=== PATIENT | male | born 1955 | race Hispanic/Latino ===

== ENCOUNTER 2020-09-26 09:05 | Observation (INO) | payer BC ==
[2020-09-26] MEDS ORDERED: ASPIRIN EC 325 MG TAB PO ONE (09:38)
[2020-09-26] MEDS ORDERED: SODIUM CHLORIDE 0.9% 500 ML 500 ML IV SCH (10:00)
[2020-09-26 10:12] LABS: Basophils # (Auto) 0.1 K/mm3 (0.0-0.1); Basophils % (Auto) 1.4 % (0.0-1.8); Eosinophils # (Auto) 0.1 K/mm3 (0.0-0.4); Eosinophils % (Auto) 2.5 % (0.0-4.3); Hematocrit 43.6 % (35.5-45.6); Hemoglobin 14.7 gm/dl (11.8-15.2); Lymphocytes # (Auto) 1.9 K/mm3 (1.2-5.4); Lymphocytes % (Auto) 31.2 % (13.4-35.0); Mean Corpuscular HGB Conc 34 % (32-34); Mean Corpuscular Volume 86 fl (84-94); Monocytes # (Auto) 0.5 K/mm3 (0.0-0.8); Monocytes % (Auto) 8.7 % (0.0-7.3); Platelet Count 252 K/mm3 (140-440); Red Blood Count 5.06 M/mm3 (3.65-5.03); Red Cell Distribution Width 13.1 % (13.2-15.2)
[2020-09-26 10:20] LABS: INR 1.01 (0.87-1.13); Partial Thromboplastin Time 24.5 Sec. (24.2-36.6)
[2020-09-26] MEDS ORDERED: HEPARIN/NS 5000 UNIT/500ML 1,000 ML IR ONE (10:23)
[2020-09-26 10:28] LABS: BUN/Creatinine Ratio 20; Blood Urea Nitrogen 20 mg/dL (9-20); Calcium 9.2 mg/dL (8.4-10.2); Hemolysis Index 9
[2020-09-26] MEDS: ASPIRIN 325 MG TAB ONE ×2 (10:30→16:12)
[2020-09-26] MEDS: MIDAZOLAM 2 MG/2 ML INJ ONE ×2 (11:23→11:30)
[2020-09-26] MEDS: LIDOCAINE (2%) 20 MG/1 ML VIAL 20 ML MDV INFILTRATI ONE ×2 (11:23→11:31)
[2020-09-26] MEDS: fentaNYL 100 MCG/2 ML INJ ONE ×3 (11:23→12:05)
[2020-09-26] MEDS: HEPARIN 10,000 UNITS/10 ML VIAL ONE ×3 (11:25→11:44)
[2020-09-26] MEDS: VERAPAMIL 5 MG/2 ML INJ ONE ×2 (11:25→11:33)
[2020-09-26] MEDS: NITROGLYCERIN SYRINGE 3 ML ONE ×2 (11:26→11:31)
[2020-09-26] MEDS ORDERED: HEPARIN/NS 5000 UNIT/500ML 500 ML IR ONE (11:46)
[2020-09-26] MEDS ORDERED: NITROGLYCERIN SYRINGE 3 ML ONE (12:01)
[2020-09-26] MEDS: TICAGRELOR 90 MG TAB ONE ×2 (12:15→12:16)
[2020-09-26] MEDS ORDERED: HYDROcodone/ACETAMINOPHEN 5-325 MG TAB PO PRN (12:53)
[2020-09-26] MEDS ORDERED: SODIUM CHLORIDE 0.9% 1000 ML 1,000 ML IV SCH (13:00)
--- NOTE | 2020-09-26 13:49 | Cardiac Catherization Report ---
LEFT HEART CATHETERIZATION/PERCUTANEOUS CORONARY INTERVENTION/INTERVENTIONAL AND INTRAVASCULAR ULTRASOUND REPORT CLINICAL INFORMATION: This is a 65-year-old male with hyperlipidemia, hypertension, who has been having exertional chest pain with moderate exertion with abnormal stress test, ST depression on treadmill with inferolateral ischemia. The patient was done with moderate sedation started at 11:30 and finished at 12:07, 37 minutes of moderate sedation. Procedure was done via the right radial artery, sterile technique, local anesthesia, 6-Tanzanian radial sheath inserted. Left system engaged with a JL3.5 catheter. Left main is a large caliber vessel, bifurcates to a large LAD that is patent from proximally and distally. Diagonal 1 is a medium to large caliber vessel, patent. Circumflex is dominant system, large caliber and AV groove. OM1, OM2 and OM3 are large caliber vessel, patent. LPDA is a large caliber vessel, has a proximal 90% and mid 99%. RCA with JR4 is engaged is a small nondominant vessel. LV gram done in KOREAN and BARROS view shows normal LV function, EF 55-60%, LVEDP 26 mmHg, LV is 160. Aortic is 157/80. No gradient across the aortic valve on pullback. A 5-Tanzanian catheters all taken over guidewire, so percutaneous coronary intervention of the LPDA engaged the left system with an EBU 3.5 guiding catheter. 1. Used a short [place] wire into the distal LPDA. 2. Predilated with 2.5 x 10 balloon x3 inflations in the mid and proximal portion of the LPDA. 3. An intravascular ultrasound showed distal reference vessel 3 mm, proximal reference vessel 3.2. 4. Then stented the mid LPDA with a drug-eluting Resolute [place] 3.0 x 15 mm inflated at 12 atmospheres. 5. Then stented the proximal LPDA just after the OM3 with a drug-eluting Resolute [place] 3.0 x 12 inflated at 15 atmospheres. 6. Multiple angiograms KIKO 3 flow, reduced stenosis from 99% down to 0. No dissection or perforation noted 7. Removed coronary wire, multiple angiograms, excellent angiographic result. No dissection or perforation, good stent apposition and expansion noted. 8. A 6-Tanzanian guiding catheter taken over guidewire, 6-Tanzanian radial sheath was discontinued. Radial band applied. No hematoma, no bleeding. SUMMARY: 1. Successful PCI of the proximal LPDA with a drug-eluting Resolute 3.0 x 12 in the mid LPDA, 3.0 x 15 drug-eluting left main patent, circumflex patent, OM1, 2, and 3 large patent. LAD, medium caliber vessel, patent. Diagonal 1 medium caliber and patent. RCA small, nondominant, and patent with normal LV function. 2. The patient will be on aspirin, Brilinta, statin and blood pressure control. Discussed in detail with the patient and the patient's family and primary pediatric lpn. JOB# [id number] VRM/NTS
--- NOTE | 2020-09-26 13:56 | Short Stay Summary ---
Short Stay Documentation Date of service: 09/26/20 - History H&P: obtained from office - Allergies and Medications Current Medications: Allergies No Known Allergies Allergy (Unverified 09/26/20 09:38) Home Medications Medication Instructions Recorded Confirmed Last Taken Type Aspirin 325 mg PO QDAY 09/26/20 09/26/20 09/26/20 10:25 History 325 mg Nitroglycerin [Nitrostat] 0.4 tab SL PRN PRN 09/26/20 09/26/20 Unknown History amLODIPine [Norvasc] 5 mg PO DAILY 09/26/20 09/26/20 09/24/20 History 5 mg Active Medications Hydrocodone Bitart/Acetaminophen (Hydrocodone/Acetaminophen 5-325 Mg Tab) 1 each PO Q6H PRN PRN Reason: Pain, Moderate (4-6) Amlodipine Besylate (Amlodipine 5 Mg Tab) 5 mg PO DAILY RIANNA Aspirin (Aspirin 81 Mg Tab Chew) 81 mg PO QDAY RIANNA Atorvastatin Calcium (Atorvastatin 40 Mg Tab) 40 mg PO QHS RIANNA Sodium Chloride (Nacl 0.9% 500 Ml) 500 mls @ 50 mls/hr IV DIRECT RIANNA Stop: 09/26/20 19:59 Last Admin: 09/26/20 10:38 Dose: 50 mls/hr Documented by: Sodium Chloride (Nacl 0.9% 1000 Ml) 1,000 mls @ 75 mls/hr IV DIRECT RIANNA Stop: 09/26/20 22:59 Ticagrelor (Ticagrelor 90 Mg Tab) 90 mg PO BID [facility] - Physical exam General appearance: no acute distress Integumentary: other (Right radial site inspected. Clean dry and intact. No bleeding or hematoma noted. ) Lungs: Clear to auscultation Heart: Regular rate, Normal S1, Normal S2 Gastrointestinal: normal, normoactive bowel sounds Extremities: no ischemia, pulses intact, pulses symmetrical, No edema, normal temperature, normal color Neurological: Normal gait, Normal speech - Brief post op/procedure progress note Date of procedure: 09/26/20 Pre-op diagnosis: Exertional Dyspnea Post-op diagnosis: other (CAD) Procedure: [facility]- see dictated cath report. Anesthesia: local Estimated blood loss: none Condition: stable - Disposition Condition at discharge: Good Disposition: DC-01 TO HOME OR SELFCARE - Discharge Diagnoses (1) CAD (coronary artery disease) Status: Acute Short Stay Discharge Plan Activity: advance as tolerated Diet: low fat, low cholesterol, low salt Wound: open to air, keep clean and dry, per your surgeon's advice Follow up with: PRIMARY CARE, [Primary Care Provider] - 7 Days YAZAN THIBODEAUX MD [Staff Physician] - 7 Days (f/u wtih Dr thibodeaux in our [place] office on 10/01/2020 at 8:45am)
[2020-09-26] MEDS ORDERED: ALUM-MAG HYDROXIDE-SIMETHICONE 200-200-20MG/5ML ORAL LIQD 30 ML ONE (13:57)
[2020-09-26] MEDS: amLODIPine 5 MG TAB PO SCH (14:02)
--- NOTE | 2020-09-26 17:21 | Electrocardiograph Report ---
[facility] Test Date: 2020-09-26 Test Time: 10:51:33 Pat Name: YANELIS HUTTON Department: Room: A474 Gender: M Rejogger: JOSHUA : 1955 Requested By: ALEX MAHMOOD Order Number: [id number] Reading MD: Siobhan Salas Measurements Intervals [place] Rate: 50 P: 48 MS: 193 QRS: 12 QRSD: 83 T: 34 QT: 436 QTc: 398 Interpretive Statements Sinus bradycardia No previous ECG available for comparison Electronically Signed On 09-26-2020 17:20:43 EDT by Siobhan Salas
[2020-09-26] MEDS: TICAGRELOR 90 MG TAB PO SCH (21:39)
[2020-09-26] MEDS ORDERED: TICAGRELOR 90 MG TAB PO SCH (22:00)
[2020-09-27 06:16] LABS: Basophils # (Auto) 0.1 K/mm3 (0.0-0.1); Basophils % (Auto) 0.8 % (0.0-1.8); Eosinophils # (Auto) 0.2 K/mm3 (0.0-0.4); Eosinophils % (Auto) 2.6 % (0.0-4.3); Hemoglobin 13.9 gm/dl (11.8-15.2); Lymphocytes % (Auto) 26.4 % (13.4-35.0); Mean Corpuscular HGB Conc 34 % (32-34); Mean Corpuscular Volume 85 fl (84-94); Monocytes # (Auto) 0.6 K/mm3 (0.0-0.8); Monocytes % (Auto) 8.4 % (0.0-7.3); Platelet Count 244 K/mm3 (140-440); Red Cell Distribution Width 13.3 % (13.2-15.2)
[2020-09-27 06:24] LABS: BUN/Creatinine Ratio 20; Blood Urea Nitrogen 18 mg/dL (9-20); Calcium 8.3 mg/dL (8.4-10.2); Hemolysis Index 3
[2020-09-27] MEDS: TICAGRELOR 90 MG TAB PO SCH (09:04)
[2020-09-27] MEDS: amLODIPine 5 MG TAB PO SCH (09:05)
--- NOTE | 2020-09-27 09:47 | XRay Report ---
CHEST 1 VIEW INDICATION / CLINICAL INFORMATION: post pci. COMPARISON: None available. FINDINGS: SUPPORT DEVICES: None. HEART / MEDIASTINUM: No significant abnormality. LUNGS / PLEURA: No significant pulmonary or pleural abnormality. No pneumothorax. ADDITIONAL FINDINGS: No significant additional findings. IMPRESSION: No acute pulmonary or pleural abnormality Signer Name: Daniel Martínez MD FACR Signed: 09/27/2020 9:43 AM Workstation Name: [id number]
[2020-09-27] MEDS ORDERED: ASPIRIN 81 MG TAB CHEW PO SCH ×2 (10:00)
[2020-09-27 10:05] VITALS: BP 127/71
--- NOTE | 2020-09-27 10:54 | Progress Note ---
Assessment and Plan 65yo wm s/p pci LPDA yesterday: rra site looks good no sxs overnight ambulating well importance of compliance w dapt reiterated ecg/labs unremarkable f/u w us in office - Patient Problems (1) CAD (coronary artery disease) Current Visit: Yes Status: Acute Subjective Interval history: no sxs feels great Objective Vital Signs Temp Pulse Pulse Resp BP BP Pulse Ox 09/27/20 10:00 97.9 F 57 L 17 127/71 100 09/27/20 09:05 61 138/75 09/27/20 07:55 98.3 F 57 L 18 144/70 96 09/27/20 07:36 89 17 99 09/27/20 04:06 98.0 F 57 L 18 116/63 96 09/27/20 03:07 52 L 09/26/20 23:38 98.0 F 61 18 146/78 95 09/26/20 19:46 98.0 F 18 122/67 09/26/20 18:01 149/73 09/26/20 17:49 53 L 09/26/20 17:31 139/65 09/26/20 16:03 141/69 09/26/20 15:37 125/72 09/26/20 14:15 53 L 18 99 09/26/20 14:02 67 137/87 09/26/20 13:45 55 L 14 128/67 99 09/26/20 13:15 54 L 16 119/70 98 09/26/20 13:00 50 L 17 124/71 96 09/26/20 12:45 50 L 17 106/54 96 09/26/20 12:25 98 F 49 L 18 137/75 95 - Labs and Meds CBC 09/27/20 Range/Units 05:40 WBC 7.7 (4.5-11.0) K/mm3 RBC 4.80 (3.65-5.03) M/mm3 Hgb 13.9 (11.8-15.2) gm/dl Hct 41.0 (35.5-45.6) % Plt Count 244 (140-440) K/mm3 Lymph # (Auto) 2.0 (1.2-5.4) K/mm3 [place] # (Auto) 0.6 (0.0-0.8) K/mm3 Eos # (Auto) 0.2 (0.0-0.4) K/mm3 Baso # (Auto) 0.1 (0.0-0.1) K/mm3 Comprehensive Metabolic Panel 09/27/20 Range/Units 05:40 Sodium 140 (137-145) mmol/L Potassium 4.2 (3.6-5.0) mmol/L Chloride 106.9 (98-107) mmol/L Carbon Dioxide 25 (22-30) mmol/L BUN 18 (9-20) mg/dL Creatinine 0.9 (0.8-1.3) mg/dL Glucose 114 H (75-100) mg/dL Calcium 8.3 L (8.4-10.2) mg/dL
--- NOTE | 2020-09-29 13:30 | Electrocardiograph Report ---
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
--- NOTE | 2020-10-02 09:26 | Electrocardiograph Report ---
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
--- NOTE | 2020-10-02 09:26 | Electrocardiograph Report ---
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
== END 2020-09-27 10:43 | disposition home or self-care (01) ==
LOC: CATHLABREC 09:05 → 4A 12:53
PROVIDERS: ADMIT Internal Medicine; ATTEND Internal Medicine
DX: I25.10 Atherosclerotic heart disease of native coronary artery without angina pectoris (principal); I10 Essential (primary) hypertension; R00.1 Bradycardia, unspecified; R94.39 Abnormal result of other cardiovascular function study; Z98.61 Coronary angioplasty status; Z87.891 Personal history of nicotine dependence; Z79.82 Long term (current) use of aspirin
CPT/HCPCS: 36415; 71045; 80048; 84484; 85025; 85610; 85730; 92978; 93005; 93458; 96360; 96361; A9270; C1725; C1753; C1769; C1874; C1887; C1894; C9600; G0378; J1644; J2250; J3010; J7040; 92928; Q9967